=== PATIENT | male | born 1945 | race Caucasian/White ===

== ENCOUNTER → 2016-11-07 | Outpatient (CLI) | payer OTHER ==
[~2016-11-07] MED LIST: AZITHROMYCIN500 M1 PO; BACLOFEN10 MG PO; CYCLOBENZAPRINE10 MG PO; IBUPROFEN800 MG PO; LOPRESSOR100 M1 PO; MELOXICAM15 MG PO; MOBIC15 MG PO; PRAVASTATIN SOD40 MG PO; PROVENTIL HFA6.7 GM IH; VALIUM5 MG PO; VICODIN,LORT1 TABLET PO; ZESTRIL,PRINIVI20 MG PO
[2016-11-07 10:28] LABS: HEMATOCRIT 40.1 % (38.0-50.0); MCH 33.5 PG (29.0-34.0); MCHC 34.9 G/DL (30.0-36.0); MCV 95.9 FL (86-99); MEAN PLAT.VOLUME 10.2 uM^3 (9.0-12.4); PLATELET COUNT 331 K/uL (156-360); RBC DIS.WIDTH-CV 13.9 % (11.8-14.6); RBC DIS.WIDTH-SD 48.8 % (39-53); RED BLOOD COUNT 4.18 M/uL (4.00-5.50); WHITE BLOOD COUNT 11.1 K/uL (4.1-10.2)
[2016-11-07 10:46] LABS: PROTHROMBIN TIME 10.5 (9.2-11.2); PTT 26.4 (25-32)
== END | disposition home or self-care (01) ==
LOC: OPR 09:31 → EDSTATUS 10:00
PROVIDERS: Internal Medicine Hematology & Oncology
PROC: 0BJK3ZZ Inspection of Right Lung, Percutaneous Approach (ICD-10-PCS; principal; 2016-11-07)
DX: R91.8 Other nonspecific abnormal finding of lung field (principal); Z53.8 Procedure and treatment not carried out for other reasons
CPT/HCPCS: 71010; 77012; 85027; 85610; 85730; J3010

== ENCOUNTER → 2017-03-06 | Outpatient (CLI) | payer OTHER ==
[~2017-03-06] VITALS: Ht 177.8 cm; Wt 98.9 kg
[~2017-03-06] MED LIST changes: +GLUCOPHAGE500 MG PO; +GLUCOTROL5 MG PO; +OXYCONTIN10 MG PO; +PREDNISONE5 MG PO
[2017-03-06 13:45] LABS: HEMATOCRIT 42.9 % (38.0-50.0); MCHC 33.6 G/DL (30.0-36.0); MCV 98.2 FL (86-99); RBC DIS.WIDTH-CV 13.1 % (11.8-14.6); RBC DIS.WIDTH-SD 47.3 % (39-53); RED BLOOD COUNT 4.37 M/uL (4.00-5.50); WHITE BLOOD COUNT 11.7 K/uL (4.1-10.2)
[2017-03-06 13:56] LABS: POINT-OF-CARE METER ID UU13113694
[2017-03-06 13:57] LABS: PROTHROMBIN TIME 10.2 (9.2-11.2); PTT 27.5 (25-32)
[2017-03-06 14:18] LABS: MEAN PLAT.VOLUME 9.9 uM^3 (9.0-12.4); PLAT.SUFFICIENCY ADEQUATE; PLATELET COUNT 335 K/uL (156-360)
[2017-03-06 16:47] LABS: POINT-OF-CARE METER ID UU13113675; POINT-OF-CARE USER ID 515036437
== END | disposition home or self-care (01) ==
LOC: AMB 12:44
PROVIDERS: Internal Medicine Pulmonary Disease
DX: R91.8 Other nonspecific abnormal finding of lung field (principal); I10 Essential (primary) hypertension; E11.9 Type 2 diabetes mellitus without complications; J44.9 Chronic obstructive pulmonary disease, unspecified; E78.5 Hyperlipidemia, unspecified; F17.210 Nicotine dependence, cigarettes, uncomplicated; Z79.84 Long term (current) use of oral hypoglycemic drugs
CPT/HCPCS: 82948; 85027; 85610; 85730; 87070; 87077; 87116; 87205; 87206; 87278; 88108; 88173; J2250; J2310; J3010

== ENCOUNTER 2017-05-11 01:22 | Emergency (ER) | payer OTHER ==
[~2017-05-11] VITALS: Ht 177.8 cm; Wt 95.5 kg
[2017-05-11 05:28] VITALS: BP 164/96
== END 2017-05-11 05:00 | disposition home or self-care (01) ==
LOC: EME 01:22
DX: M54.41 Lumbago with sciatica, right side (principal); G89.29 Other chronic pain; I10 Essential (primary) hypertension; E11.9 Type 2 diabetes mellitus without complications; Z79.84 Long term (current) use of oral hypoglycemic drugs; Z88.0 Allergy status to penicillin; Z88.6 Allergy status to analgesic agent
CPT/HCPCS: 99281; 99283; J2270

== ENCOUNTER → 2017-08-10 | Outpatient (CLI) | payer OTHER ==
[~2017-08-10] VITALS: Ht 177.8 cm; Wt 91.6 kg
[~2017-08-10] MED LIST changes: +ALBUTEROL2.5 MG/3 M IH; +ANTIBOTIC PO; +KADIAN30 MG PO
[2017-08-10 14:44] LABS: POINT-OF-CARE METER ID UU14107333
[2017-08-10 15:03] LABS: ANION GAP 7 MEQ/L (2-14); CHLORIDE 102 MEQ/L (99-109); POTASSIUM 5.5 MEQ/L (3.7-5.4); SAMPLE HEMOLYSIS CHECK 2; SAMPLE ICTERIC CHECK 0; SAMPLE LIPEMIA CHECK 0; SODIUM 135 MEQ/L (136-147)
[2017-08-10 15:09] LABS: GFR ESTIMATE (CALCULATED) > 59 mL/min/; GLUCOSE 133 mg/dL (70-99); UREA NITROGEN (BUN) 16 mg/dL (9-23)
== END | disposition home or self-care (01) ==
LOC: AMB 14:14
PROVIDERS: Internal Medicine Pulmonary Disease
DX: C34.31 Malignant neoplasm of lower lobe, right bronchus or lung (principal); F17.200 Nicotine dependence, unspecified, uncomplicated; J44.9 Chronic obstructive pulmonary disease, unspecified; I10 Essential (primary) hypertension; E11.9 Type 2 diabetes mellitus without complications; Z79.84 Long term (current) use of oral hypoglycemic drugs; E78.5 Hyperlipidemia, unspecified; Z82.49 Family history of ischemic heart disease and other diseases of the circulatory system; Z80.8 Family history of malignant neoplasm of other organs or systems
CPT/HCPCS: 80048; 82948; 87070; 87116; 87205; 87206; 87278; 94640; J2250; J3010

== ENCOUNTER → 2017-09-11 | Outpatient (CLI) | payer OTHER | END | disposition home or self-care (01) | LOC: NUC 13:30 | DX: C34.90 Malignant neoplasm of unspecified part of unspecified bronchus or lung (principal) | CPT/HCPCS: 71020; 78598; A9540; A9567 ==

== ENCOUNTER → 2017-09-26 | Outpatient (CLI) | payer MEDICARE, OTHER ==
[~2017-09-26] MED LIST changes: +COL-RITE100 M1 PO; +HYDROCODON-ACE1 EAC7 PO
== END | disposition home or self-care (01) ==
LOC: CDC 11:58
DX: Z01.810 Encounter for preprocedural cardiovascular examination (principal); C34.90 Malignant neoplasm of unspecified part of unspecified bronchus or lung
CPT/HCPCS: 93000

== ENCOUNTER 2017-09-29 05:10 | Day surgery (SDC) | payer OTHER ==
[~2017-09-29] VITALS: Ht 177.8 cm; Wt 91.1 kg
[~2017-09-29 05:10] MED LIST changes: -COL-RITE100 M1 PO; -HYDROCODON-ACE1 EAC7 PO
[2017-09-29 06:00] VITALS: BP 110/63
[2017-09-29 06:09] LABS: BASOPHIL (%) 0.4 % (0-1); EOSINOPHIL (%) 1.4 % (0-5); EOSINOPHIL COUNT 0.1 K/uL (0-0.3); HEMATOCRIT 39.6 % (38.0-50.0); HEMOGLOBIN 13.3 G/DL (12.5-16.6); IMMATURE GRANULOCYTE (%) 0.3 % (0.0-0.7); LYMPHOCYTE COUNT 4.6 K/uL (1.0-2.8); MCHC 33.6 G/DL (30.0-36.0); MCV 95.2 FL (86-99); MONOCYTE (%) 8.1 % (3-12); MONOCYTE COUNT 0.8 K/uL (0-0.8); NEUTROPHIL (%) 44.8 % (45-76); NEUTROPHIL COUNT 4.6 K/uL (1.8-6.4); PLATELET COUNT 365 K/uL (156-360); RBC DIS.WIDTH-CV 14.3 % (11.8-14.6); RBC DIS.WIDTH-SD 49.8 % (39-53); RED BLOOD COUNT 4.16 M/uL (4.00-5.50); WHITE BLOOD COUNT 10.3 K/uL (4.1-10.2)
[2017-09-29 06:17] LABS: PTT 29.6 SEC (25-37)
[2017-09-29] MEDS ORDERED: HYDROCODON-ACE1 EAC7 PO (09:53)
[2017-09-29] MEDS ORDERED: COL-RITE100 M1 PO (09:53)
[2017-09-29 11:24] VITALS: BP 114/58
[2017-09-29 12:17] VITALS: BP 118/69
== END 2017-09-29 12:18 | disposition home or self-care (01) ==
LOC: SDC 05:10
PROVIDERS: Thoracic Surgery (Cardiothoracic Vascular Surgery)
DX: C34.90 Malignant neoplasm of unspecified part of unspecified bronchus or lung (principal); E11.9 Type 2 diabetes mellitus without complications; I10 Essential (primary) hypertension; E78.00 Pure hypercholesterolemia, unspecified; J44.9 Chronic obstructive pulmonary disease, unspecified; K21.9 Gastro-esophageal reflux disease without esophagitis; F17.210 Nicotine dependence, cigarettes, uncomplicated
CPT/HCPCS: 82948; 85025; 85610; 85730; 86850; 86900; 86901; 88305; 88312; 94640; J0330; J0690; J1100; J1170; J2250; J2405; J3010

== ENCOUNTER 2017-10-18 22:02 | Inpatient (IN) | payer OTHER ==
[~2017-10-18] VITALS: Ht 177.8 cm; Wt 86.7 kg
[~2017-10-18 22:02] MED LIST changes: +COL-RITE100 M1 PO; +COLACE100 MG PO; +HYDROCODON-ACE1 EAC7 PO
[2017-10-19 07:03] VITALS: BP 123/73
[2017-10-19 07:08] LABS: CHLORIDE 104 mEq/L (99-109); POTASSIUM 4.8 mEq/L (3.7-5.4); SODIUM 140 mEq/L (136-147)
[2017-10-19 07:09] LABS: PTT 29.3 SEC (25-37)
[2017-10-19 07:10] LABS: GLUCOSE 157 mg/dL (70-99)
[2017-10-19 07:14] LABS: CREATININE 0.7 mg/dL (0.6-1.3); GFR ESTIMATE (CALCULATED) > 59 mL/min/ (58.99-99999)
[2017-10-19 07:15] LABS: UREA NITROGEN (BUN) 12 mg/dL (9-23)
[2017-10-19 16:05] LABS: HEMATOCRIT 34.4 % (38.0-50.0); HEMOGLOBIN 11.7 G/DL (12.5-16.6); MCV 93.2 FL (86-99)
[2017-10-19 19:00] VITALS: BP 107/89
[2017-10-19 20:00] VITALS: BP 117/61
[2017-10-19 21:00] VITALS: BP 112/51
[2017-10-19 22:00] VITALS: BP 111/98
[2017-10-20 07:19] LABS: HEMATOCRIT 29.3 % (38.0-50.0); MCH 31.7 PG (29.0-34.0); MCHC 34.1 G/DL (30.0-36.0); PLATELET COUNT 296 K/uL (156-360); RBC DIS.WIDTH-CV 14.6 % (11.8-14.6); WHITE BLOOD COUNT 16.6 K/uL (4.1-10.2)
[2017-10-20 07:27] LABS: RED BLOOD COUNT 3.15 M/uL (4.00-5.50)
[2017-10-20 07:40] LABS: CHLORIDE 106 MEQ/L (99-109); CREATININE 0.5 MG/DL (0.6-1.3); GFR ESTIMATE (CALCULATED) > 59 mL/min/ (58.99-99999); GLUCOSE 147 mg/dL (70-99); SODIUM 135 MEQ/L (136-147); UREA NITROGEN (BUN) 14 mg/dL (9-23)
[2017-10-20 08:00] VITALS: BP 129/63
[2017-10-20 09:00] VITALS: BP 129/63
[2017-10-20 20:00] VITALS: BP 121/63
[2017-10-20 21:00] VITALS: BP 138/65
[2017-10-20 23:00] VITALS: BP 141/65
[2017-10-21] VITALS (14 sets, daily range): BP systolic 101–137; BP diastolic 48–71
[2017-10-21 05:24] LABS: HEMATOCRIT 27.5 % (38.0-50.0); MCH 30.7 PG (29.0-34.0); MCHC 32.7 G/DL (30.0-36.0); MCV 93.9 FL (86-99); PLATELET COUNT 287 K/uL (156-360); RBC DIS.WIDTH-CV 14.4 % (11.8-14.6); RBC DIS.WIDTH-SD 49.9 % (39-53); RED BLOOD COUNT 2.93 M/uL (4.00-5.50); WHITE BLOOD COUNT 12.7 K/uL (4.1-10.2)
[2017-10-21 06:04] LABS: CHLORIDE 106 MEQ/L (99-109); CREATININE 0.6 MG/DL (0.6-1.3); GFR ESTIMATE (CALCULATED) > 59 mL/min/ (58.99-99999); POTASSIUM 4.5 MEQ/L (3.7-5.4); SODIUM 140 MEQ/L (136-147); UREA NITROGEN (BUN) 14 mg/dL (9-23)
[2017-10-21 06:05] LABS: GLUCOSE 106 mg/dL (70-99)
[2017-10-22] VITALS (11 sets, daily range): BP systolic 99–138; BP diastolic 54–68
[2017-10-22 07:04] LABS: BASOPHIL (%) 0.3 % (0-1); EOSINOPHIL (%) 1.7 % (0-5); EOSINOPHIL COUNT 0.2 K/uL (0-0.3); HEMATOCRIT 27.1 % (38.0-50.0); HEMOGLOBIN 8.9 G/DL (12.5-16.6); IMMATURE GRANULOCYTE (%) 0.5 % (0.0-0.7); LYMPHOCYTE (%) 17.5 % (15-42); LYMPHOCYTE COUNT 2.2 K/uL (1.0-2.8); MCH 31.2 PG (29.0-34.0); MCHC 32.8 G/DL (30.0-36.0); MCV 95.1 FL (86-99); MONOCYTE (%) 9.6 % (3-12); MONOCYTE COUNT 1.2 K/uL (0-0.8); NEUTROPHIL (%) 70.4 % (45-76); NEUTROPHIL COUNT 8.9 K/uL (1.8-6.4); PLATELET COUNT 317 K/uL (156-360); RBC DIS.WIDTH-CV 14.3 % (11.8-14.6); RBC DIS.WIDTH-SD 50.5 % (39-53); RED BLOOD COUNT 2.85 M/uL (4.00-5.50); WHITE BLOOD COUNT 12.7 K/uL (4.1-10.2)
[2017-10-22 07:34] LABS: CHLORIDE 104 MEQ/L (99-109); CREATININE 0.5 MG/DL (0.6-1.3); GFR ESTIMATE (CALCULATED) > 59 mL/min/ (58.99-99999); GLUCOSE 134 mg/dL (70-99); MAGNESIUM 1.5 mg/dl (1.3-2.7); PHOSPHORUS 3.6 mg/dL (2.5-4.9); POTASSIUM 4.4 MEQ/L (3.7-5.4); SODIUM 136 MEQ/L (136-147); UREA NITROGEN (BUN) 9 mg/dL (9-23)
[2017-10-23] VITALS (12 sets, daily range): BP systolic 101–123; BP diastolic 39–91
[2017-10-23 05:00] LABS: HEMOGLOBIN 9.2 G/DL (12.5-16.6); MCH 32.5 PG (29.0-34.0); MCHC 34.1 G/DL (30.0-36.0); MCV 95.4 FL (86-99); RBC DIS.WIDTH-CV 14.2 % (11.8-14.6); RBC DIS.WIDTH-SD 50.2 % (39-53); RED BLOOD COUNT 2.83 M/uL (4.00-5.50); WHITE BLOOD COUNT 10.9 K/uL (4.1-10.2)
[2017-10-23 05:35] LABS: HEMATOLOGY COMMENT 1 SN; PLAT.SUFFICIENCY ADEQUATE; PLATELET COUNT UNABLE TO REPORT K/uL (156-360)
[2017-10-23 06:03] LABS: CHLORIDE 105 MEQ/L (99-109); CREATININE 0.5 MG/DL (0.6-1.3); GFR ESTIMATE (CALCULATED) > 59 mL/min/ (58.99-99999); GLUCOSE 126 mg/dL (70-99); POTASSIUM 4.5 MEQ/L (3.7-5.4); SODIUM 139 MEQ/L (136-147); UREA NITROGEN (BUN) 11 mg/dL (9-23)
[2017-10-24] VITALS (14 sets, daily range): BP systolic 103–140; BP diastolic 48–81
[2017-10-24 07:06] LABS: HEMATOCRIT 28.4 % (38.0-50.0); HEMOGLOBIN 9.4 G/DL (12.5-16.6); MCH 31.4 PG (29.0-34.0); MCHC 33.1 G/DL (30.0-36.0); PLATELET COUNT 373 K/uL (156-360); RBC DIS.WIDTH-SD 48.5 % (39-53); RED BLOOD COUNT 2.99 M/uL (4.00-5.50); WHITE BLOOD COUNT 9.1 K/uL (4.1-10.2)
[2017-10-24 07:29] LABS: CHLORIDE 104 MEQ/L (99-109); POTASSIUM 4.4 MEQ/L (3.7-5.4); SODIUM 138 MEQ/L (136-147)
[2017-10-24 07:34] LABS: CREATININE 0.5 MG/DL (0.6-1.3); GFR ESTIMATE (CALCULATED) > 59 mL/min/ (58.99-99999); GLUCOSE 101 mg/dL (70-99); UREA NITROGEN (BUN) 12 mg/dL (9-23)
[2017-10-25] VITALS (18 sets, daily range): BP systolic 96–152; BP diastolic 51–88
[2017-10-25 06:23] LABS: HEMATOCRIT 28.1 % (38.0-50.0); HEMOGLOBIN 9.2 G/DL (12.5-16.6); MCHC 32.7 G/DL (30.0-36.0); MCV 94.6 FL (86-99); PLATELET COUNT 416 K/uL (156-360); RBC DIS.WIDTH-CV 14.1 % (11.8-14.6); RBC DIS.WIDTH-SD 49.4 % (39-53); RED BLOOD COUNT 2.97 M/uL (4.00-5.50); WHITE BLOOD COUNT 8.6 K/uL (4.1-10.2)
[2017-10-25 07:08] LABS: CHLORIDE 103 MEQ/L (99-109); CREATININE 0.5 MG/DL (0.6-1.3); GFR ESTIMATE (CALCULATED) > 59 mL/min/ (58.99-99999); GLUCOSE 119 mg/dL (70-99); POTASSIUM 4.5 MEQ/L (3.7-5.4); SODIUM 138 MEQ/L (136-147); UREA NITROGEN (BUN) 11 mg/dL (9-23)
[2017-10-26] VITALS (14 sets, daily range): BP systolic 100–149; BP diastolic 47–88
[2017-10-26 06:18] LABS: HEMATOCRIT 30.7 % (38.0-50.0); HEMOGLOBIN 9.9 G/DL (12.5-16.6); MCH 31.2 PG (29.0-34.0); MCHC 32.2 G/DL (30.0-36.0); MCV 96.8 FL (86-99); RBC DIS.WIDTH-CV 14.1 % (11.8-14.6); RBC DIS.WIDTH-SD 49.4 % (39-53); RED BLOOD COUNT 3.17 M/uL (4.00-5.50); WHITE BLOOD COUNT 8.2 K/uL (4.1-10.2)
[2017-10-26 06:19] LABS: CHLORIDE 106 MEQ/L (99-109); POTASSIUM 4.6 MEQ/L (3.7-5.4); SODIUM 138 MEQ/L (136-147)
[2017-10-26 06:24] LABS: CREATININE 0.6 MG/DL (0.6-1.3); GFR ESTIMATE (CALCULATED) > 59 mL/min/ (58.99-99999); GLUCOSE 90 mg/dL (70-99); UREA NITROGEN (BUN) 13 mg/dL (9-23)
[2017-10-26 07:28] LABS: PLAT.SUFFICIENCY ADEQUATE
[2017-10-26 07:50] LABS: PLATELET COUNT 283 K/uL (156-360)
[2017-10-27] VITALS (17 sets, daily range): BP systolic 103–168; BP diastolic 49–76
[2017-10-27 05:18] LABS: HEMATOCRIT 30.5 % (38.0-50.0); MCHC 32.8 G/DL (30.0-36.0); MCV 94.4 FL (86-99); RBC DIS.WIDTH-CV 13.9 % (11.8-14.6); RBC DIS.WIDTH-SD 47.6 % (39-53); RED BLOOD COUNT 3.23 M/uL (4.00-5.50); WHITE BLOOD COUNT 11.3 K/uL (4.1-10.2)
[2017-10-27 05:21] LABS: PLATELET COUNT 511 K/uL (156-360)
[2017-10-27 05:44] LABS: CHLORIDE 100 MEQ/L (99-109); CREATININE 0.6 MG/DL (0.6-1.3); GFR ESTIMATE (CALCULATED) > 59 mL/min/ (58.99-99999); GLUCOSE 126 mg/dL (70-99); POTASSIUM 4.5 MEQ/L (3.7-5.4); SODIUM 140 MEQ/L (136-147); UREA NITROGEN (BUN) 10 mg/dL (9-23)
[2017-10-28] VITALS (23 sets, daily range): BP systolic 89–165; BP diastolic 46–111
[2017-10-28 07:21] LABS: HEMATOCRIT 28.9 % (38.0-50.0); HEMOGLOBIN 9.5 G/DL (12.5-16.6); MCH 31.4 PG (29.0-34.0); MCHC 32.9 G/DL (30.0-36.0); MCV 95.4 FL (86-99); PLATELET COUNT 423 K/uL (156-360); RBC DIS.WIDTH-CV 14.3 % (11.8-14.6); RBC DIS.WIDTH-SD 49.1 % (39-53); RED BLOOD COUNT 3.03 M/uL (4.00-5.50); WHITE BLOOD COUNT 9.3 K/uL (4.1-10.2)
[2017-10-28 07:46] LABS: CHLORIDE 106 MEQ/L (99-109); CREATININE 0.6 MG/DL (0.6-1.3); GFR ESTIMATE (CALCULATED) > 59 mL/min/ (58.99-99999); GLUCOSE 137 mg/dL (70-99); SODIUM 141 MEQ/L (136-147); UREA NITROGEN (BUN) 6 mg/dL (9-23)
[2017-10-29] VITALS (22 sets, daily range): BP systolic 66–145; BP diastolic 40–83
[2017-10-30] VITALS (20 sets, daily range): BP systolic 77–143; BP diastolic 40–75
[2017-10-31] VITALS (19 sets, daily range): BP systolic 0–118; BP diastolic 0–73
[2017-10-31 05:15] LABS: HEMATOCRIT 30.1 % (38.0-50.0); HEMOGLOBIN 9.8 G/DL (12.5-16.6); MCH 31.5 PG (29.0-34.0); MCHC 32.6 G/DL (30.0-36.0); MCV 96.8 FL (86-99); PLATELET COUNT 423 K/uL (156-360); RBC DIS.WIDTH-CV 14.2 % (11.8-14.6); RBC DIS.WIDTH-SD 50.6 % (39-53); RED BLOOD COUNT 3.11 M/uL (4.00-5.50); WHITE BLOOD COUNT 16.5 K/uL (4.1-10.2)
[2017-10-31 05:44] LABS: CHLORIDE 99 MEQ/L (99-109); CREATININE 0.7 MG/DL (0.6-1.3); GFR ESTIMATE (CALCULATED) > 59 mL/min/ (58.99-99999); GLUCOSE 145 mg/dL (70-99); POTASSIUM 4.7 MEQ/L (3.7-5.4); SODIUM 136 MEQ/L (136-147); UREA NITROGEN (BUN) 13 mg/dL (9-23)
[2017-11-01] VITALS (25 sets, daily range): BP systolic 76–126; BP diastolic 41–84
[2017-11-01 00:55] LABS: APPEARANCE CLEAR ((CLEAR)); BILIRUBIN NEGATIVE; BLOOD NEGATIVE; COLOR YELLOW ((YELLOW)); GLUCOSE (STRIP) NEGATIVE; KETONES NEGATIVE; LEUKOCYTES NEGATIVE; NITRITE NEGATIVE; PROTEIN (STRIP) NEGATIVE; SPECIFIC GRAVITY 1.011 (1.000-1.030); UCUL ADDED? NO; UROBILINOGEN 0.2 MG/DL (0.2-1.0)
[2017-11-01 06:03] LABS: HEMATOCRIT 29.2 % (38.0-50.0); HEMOGLOBIN 9.3 G/DL (12.5-16.6); MCH 30.6 PG (29.0-34.0); MCHC 31.8 G/DL (30.0-36.0); MCV 96.1 FL (86-99); PLATELET COUNT 426 K/uL (156-360); RBC DIS.WIDTH-SD 49.3 % (39-53); RED BLOOD COUNT 3.04 M/uL (4.00-5.50); WHITE BLOOD COUNT 16.1 K/uL (4.1-10.2)
[2017-11-01 06:28] LABS: CHLORIDE 100 MEQ/L (99-109); CREATININE 0.7 MG/DL (0.6-1.3); GFR ESTIMATE (CALCULATED) > 59 mL/min/ (58.99-99999); GLUCOSE 138 mg/dL (70-99); POTASSIUM 4.9 MEQ/L (3.7-5.4); SODIUM 137 MEQ/L (136-147); UREA NITROGEN (BUN) 11 mg/dL (9-23)
[2017-11-02] VITALS (26 sets, daily range): BP systolic 84–154; BP diastolic 44–95
[2017-11-02 04:58] LABS: HEMATOCRIT 27.4 % (38.0-50.0); HEMOGLOBIN 9.2 G/DL (12.5-16.6); MCH 31.6 PG (29.0-34.0); MCHC 33.6 G/DL (30.0-36.0); MCV 94.2 FL (86-99); PLATELET COUNT 420 K/uL (156-360); RBC DIS.WIDTH-CV 13.8 % (11.8-14.6); RBC DIS.WIDTH-SD 47.5 % (39-53); RED BLOOD COUNT 2.91 M/uL (4.00-5.50)
[2017-11-02 05:17] LABS: CHLORIDE 99 mEq/L (99-109); POTASSIUM 4.9 mEq/L (3.7-5.4); SODIUM 133 mEq/L (136-147)
[2017-11-02 05:19] LABS: GLUCOSE 158 mg/dL (70-99)
[2017-11-02 05:23] LABS: CREATININE 0.7 mg/dL (0.6-1.3); GFR ESTIMATE (CALCULATED) > 59 mL/min/ (58.99-99999); UREA NITROGEN (BUN) 16 mg/dL (9-23)
[2017-11-03] VITALS (16 sets, daily range): BP systolic 0–140; BP diastolic 0–83
[2017-11-03 04:37] LABS: HEMATOCRIT 30.2 % (38.0-50.0); HEMOGLOBIN 10.1 G/DL (12.5-16.6); MCH 31.8 PG (29.0-34.0); MCHC 33.4 G/DL (30.0-36.0); PLATELET COUNT 492 K/uL (156-360); RBC DIS.WIDTH-CV 13.9 % (11.8-14.6); RBC DIS.WIDTH-SD 48.9 % (39-53); RED BLOOD COUNT 3.18 M/uL (4.00-5.50)
[2017-11-04] VITALS (19 sets, daily range): BP systolic 80–136; BP diastolic 43–96
[2017-11-04 08:53] LABS: HEMATOCRIT 26.4 % (38.0-50.0); HEMOGLOBIN 8.7 G/DL (12.5-16.6); PLATELET COUNT 437 K/uL (156-360); RED BLOOD COUNT 2.81 M/uL (4.00-5.50); WHITE BLOOD COUNT 6.2 K/uL (4.1-10.2)
[2017-11-04 09:24] LABS: CHLORIDE 98 MEQ/L (99-109); CREATININE 0.5 MG/DL (0.6-1.3); GFR ESTIMATE (CALCULATED) > 59 mL/min/ (58.99-99999); GLUCOSE 128 mg/dL (70-99); POTASSIUM 4.6 MEQ/L (3.7-5.4); SODIUM 135 MEQ/L (136-147); UREA NITROGEN (BUN) 14 mg/dL (9-23)
[2017-11-05] VITALS (17 sets, daily range): BP systolic 76–127; BP diastolic 41–63
[2017-11-05 09:07] LABS: HEMATOCRIT 26.6 % (38.0-50.0); HEMOGLOBIN 8.6 G/DL (12.5-16.6); MCH 30.8 PG (29.0-34.0); MCHC 32.3 G/DL (30.0-36.0); MCV 95.3 FL (86-99); PLATELET COUNT 463 K/uL (156-360); RBC DIS.WIDTH-CV 13.9 % (11.8-14.6); RBC DIS.WIDTH-SD 48.5 % (39-53); RED BLOOD COUNT 2.79 M/uL (4.00-5.50); WHITE BLOOD COUNT 8.1 K/uL (4.1-10.2)
[2017-11-05 09:30] LABS: CHLORIDE 98 MEQ/L (99-109); CREATININE 0.5 MG/DL (0.6-1.3); GFR ESTIMATE (CALCULATED) > 59 mL/min/ (58.99-99999); GLUCOSE 131 mg/dL (70-99); POTASSIUM 4.6 MEQ/L (3.7-5.4); SODIUM 137 MEQ/L (136-147); UREA NITROGEN (BUN) 10 mg/dL (9-23)
[2017-11-06 03:00] VITALS: BP 94/53
[2017-11-06 12:00] VITALS: BP 113/53
[2017-11-06 16:00] VITALS: BP 96/47
[2017-11-06 20:00] VITALS: BP 103/57
[2017-11-07] VITALS (7 sets, daily range): BP systolic 106–135; BP diastolic 51–66
[2017-11-08] VITALS (7 sets, daily range): BP systolic 103–136; BP diastolic 54–80
[2017-11-08 06:57] LABS: HEMATOCRIT 30.4 % (38.0-50.0); HEMOGLOBIN 9.8 G/DL (12.5-16.6); MCH 30.4 PG (29.0-34.0); MCHC 32.2 G/DL (30.0-36.0); MCV 94.4 FL (86-99); PLATELET COUNT 591 K/uL (156-360); RBC DIS.WIDTH-SD 48.7 % (39-53); RED BLOOD COUNT 3.22 M/uL (4.00-5.50); WHITE BLOOD COUNT 11.6 K/uL (4.1-10.2)
[2017-11-08 07:21] LABS: CHLORIDE 97 MEQ/L (99-109); CREATININE 0.6 MG/DL (0.6-1.3); GFR ESTIMATE (CALCULATED) > 59 mL/min/ (58.99-99999); GLUCOSE 135 mg/dL (70-99); POTASSIUM 5.1 MEQ/L (3.7-5.4); SODIUM 136 MEQ/L (136-147); UREA NITROGEN (BUN) 16 mg/dL (9-23)
[2017-11-09 03:40] VITALS: BP 122/59
[2017-11-09 07:40] VITALS: BP 136/60
[2017-11-09 11:30] VITALS: BP 130/58
[2017-11-09 16:03] VITALS: BP 122/61
[2017-11-09 19:09] VITALS: BP 117/57
[2017-11-09 23:31] VITALS: BP 116/55
[2017-11-10 03:23] VITALS: BP 113/57
[2017-11-10 06:59] VITALS: BP 134/60
[2017-11-10 10:49] VITALS: BP 118/56
[2017-11-10 15:15] VITALS: BP 112/57
[2017-11-10 19:13] VITALS: BP 130/67
[2017-11-10 22:56] VITALS: BP 112/77
[2017-11-11 03:45] VITALS: BP 125/59
[2017-11-11 06:54] VITALS: BP 121/58
[2017-11-11 10:12] VITALS: BP 126/62
[2017-11-11 11:31] VITALS: BP 117/56
[2017-11-11 19:30] VITALS: BP 116/59
[2017-11-11 23:05] VITALS: BP 112/58
[2017-11-12 06:37] VITALS: BP 132/60
[2017-11-12 06:53] LABS: HEMATOCRIT 29.2 % (38.0-50.0); HEMOGLOBIN 9.4 G/DL (12.5-16.6); MCH 30.5 PG (29.0-34.0); MCHC 32.2 G/DL (30.0-36.0); MCV 94.8 FL (86-99); PLATELET COUNT 516 K/uL (156-360); RBC DIS.WIDTH-CV 14.2 % (11.8-14.6); RBC DIS.WIDTH-SD 48.3 % (39-53); RED BLOOD COUNT 3.08 M/uL (4.00-5.50); WHITE BLOOD COUNT 10.8 K/uL (4.1-10.2)
[2017-11-12 07:24] LABS: CHLORIDE 97 MEQ/L (99-109); CREATININE 0.5 MG/DL (0.6-1.3); GFR ESTIMATE (CALCULATED) > 59 mL/min/ (58.99-99999); GLUCOSE 126 mg/dL (70-99); POTASSIUM 4.9 MEQ/L (3.7-5.4); SODIUM 137 MEQ/L (136-147); UREA NITROGEN (BUN) 11 mg/dL (9-23)
[2017-11-12 16:03] VITALS: BP 115/58
[2017-11-12 21:10] VITALS: BP 125/59
[2017-11-12 23:32] VITALS: BP 114/60
[2017-11-13 07:46] VITALS: BP 149/66
[2017-11-13 11:36] VITALS: BP 100/56
[2017-11-13 16:31] VITALS: BP 116/55
[2017-11-13 19:43] VITALS: BP 128/66
[2017-11-13 23:11] VITALS: BP 124/54
[2017-11-14 03:32] VITALS: BP 127/61
[2017-11-14 07:38] VITALS: BP 115/56
[2017-11-14 15:55] VITALS: BP 121/60
[2017-11-14 20:08] VITALS: BP 106/56
[2017-11-14 22:47] VITALS: BP 123/60
[2017-11-15 00:21] VITALS: BP 112/56
[2017-11-15 04:15] VITALS: BP 106/55
[2017-11-15 08:00] VITALS: BP 115/56
[2017-11-15] MEDS ORDERED: DIGOXIN125 MCG PO (09:37)
[2017-11-15] MEDS ORDERED: LOPRESSOR50 MG PO (09:37)
[2017-11-15] MEDS ORDERED: ENDOCET 5-3251 EACH PO (09:37)
[2017-11-15] MEDS ORDERED: THERAGRAN1 TABLET PO (09:37)
[2017-11-15] MEDS ORDERED: MIRTAZAPINE7.5 MG PO (09:37)
[2017-11-15] MEDS ORDERED: MULTAQ400 MG PO (09:37)
[2017-11-15] MEDS ORDERED: BUSPAR15 MG PO (09:37)
[2017-11-15] MEDS ORDERED: FLORASTOR250 MG PO (09:37)
[2017-11-15 15:30] VITALS: BP 102/68
== END 2017-11-15 17:15 | disposition home or self-care (01) | DRG 164 ==
LOC: ENRESERV 22:02 → 5EAST 10-19 06:21 → 4WEST 10-19 06:21 → 2SOUTH 10-19 06:21 → ENRESERV 10-19 10:28 → 2SOUTH 10-19 11:24 → ENRESERV 10-19 13:24 → 2SOUTH 10-19 16:45 → 4WEST 10-19 18:07 → ENRESERV 11-07 08:13 → 5EAST 11-07 15:40 → ENPENDDIS 11-15 → 5EAST 11-15 17:15
PROVIDERS: Anesthesiology; Surgery; Thoracic Surgery (Cardiothoracic Vascular Surgery)
PROC: 0BTF0ZZ Resection of Right Lower Lung Lobe, Open Approach (ICD-10-PCS; principal; 2017-10-19)
PROC: 0BJ00ZZ Inspection of Tracheobronchial Tree, Open Approach (ICD-10-PCS; principal; 2017-10-19)
PROC: 0BQ10ZZ Repair Trachea, Open Approach (ICD-10-PCS; principal; 2017-10-19)
PROC: 0BTD0ZZ Resection of Right Middle Lung Lobe, Open Approach (ICD-10-PCS; principal; 2017-10-19)
PROC: 02QQ0ZZ Repair Right Pulmonary Artery, Open Approach (ICD-10-PCS; principal; 2017-10-19)
PROC: 0WJ80ZZ Inspection of Chest Wall, Open Approach (ICD-10-PCS; principal; 2017-10-19)
PROC: 0J960ZZ Drainage of Chest Subcutaneous Tissue and Fascia, Open Approach (ICD-10-PCS; principal; 2017-10-19)
DX: C34.31 Malignant neoplasm of lower lobe, right bronchus or lung (principal); T81.4XXA Infection following a procedure, initial encounter; D62 Acute posthemorrhagic anemia; J95.71 Accidental puncture and laceration of a respiratory system organ or structure during a respiratory system procedure; I97.51 Accidental puncture and laceration of a circulatory system organ or structure during a circulatory system procedure; T81.82XA Emphysema (subcutaneous) resulting from a procedure, initial encounter; E78.00 Pure hypercholesterolemia, unspecified; E78.5 Hyperlipidemia, unspecified; E11.9 Type 2 diabetes mellitus without complications; F43.23 Adjustment disorder with mixed anxiety and depressed mood; I10 Essential (primary) hypertension; I48.0 Paroxysmal atrial fibrillation; J44.9 Chronic obstructive pulmonary disease, unspecified; R63.0 Anorexia; J98.09 Other diseases of bronchus, not elsewhere classified; G47.00 Insomnia, unspecified; M12.9 Arthropathy, unspecified; J98.4 Other disorders of lung; E66.9 Obesity, unspecified; Z68.28 Body mass index [BMI] 28.0-28.9, adult; Z79.84 Long term (current) use of oral hypoglycemic drugs; Z79.51 Long term (current) use of inhaled steroids; Z87.891 Personal history of nicotine dependence; Z80.0 Family history of malignant neoplasm of digestive organs; Z80.1 Family history of malignant neoplasm of trachea, bronchus and lung; Z82.49 Family history of ischemic heart disease and other diseases of the circulatory system
CPT/HCPCS: 71045; 71046; 74230; 80048; 80048 91; 80162; 81003; 82948; 83735; 84100; 85014; 85018; 85025; 85027; 85610; 85730; 86850; 86900; 86901; 86920; 87040; 87070; 87075; 87076; 87185; 87205; 87641; 88300; 88305; 88309; 88331; 92526 GN; 92610 GN; 92611 GN; 93005; 94640; 94640 76; 94760; 94799; 97530 GO; 97530 GP; 99202; C1753; J0131; J0330; J0690; J1100; J1160; J1170; J1200; J1644; J1815; J1885; J1940; J2060; J2250; J2405; J2710; J3010; J3420; J7050; J7120; J7512; P9016; P9045; Q0167; S0020

== ENCOUNTER 2017-11-18 18:14 | Inpatient (IN) | payer OTHER ==
[~2017-11-18] VITALS: Ht 208.3 cm; Wt 81.7 kg
[~2017-11-18 18:14] MED LIST changes: +BUSPAR15 MG PO; +DIGOXIN125 MCG PO; +ENDOCET 5-3251 EACH PO; +FLORASTOR250 MG PO; +LOPRESSOR50 MG PO; +MIRTAZAPINE7.5 MG PO; +MULTAQ400 MG PO; +THERAGRAN1 TABLET PO
[2017-11-18 20:09] LABS: HEMATOCRIT 37.1 % (38.0-50.0); MCH 30.7 PG (29.0-34.0); MCHC 33.2 G/DL (30.0-36.0); MCV 92.5 FL (86-99); RBC DIS.WIDTH-SD 47.7 % (39-53); WHITE BLOOD COUNT 19.8 K/uL (4.1-10.2)
[2017-11-18 20:13] LABS: CARBON DIOXIDE (BICARBONATE) 30.4 MEQ/L (20-31)
[2017-11-18 20:17] LABS: CHLORIDE 97 mEq/L (99-109); POTASSIUM 5.4 mEq/L (3.7-5.4); SODIUM 136 mEq/L (136-147)
[2017-11-18 20:18] LABS: GLUCOSE 186 mg/dL (70-99)
[2017-11-18 20:22] LABS: CREATININE 0.8 mg/dL (0.6-1.3); GFR ESTIMATE (CALCULATED) > 59 mL/min/ (58.99-99999)
[2017-11-18 20:23] LABS: UREA NITROGEN (BUN) 16 mg/dL (9-23)
[2017-11-18 20:44] LABS: BASOPHIL (%) 0.4 % (0-1); BASOPHIL COUNT 0.1 K/uL (0-0.1); EOSINOPHIL (%) 0 % (0-5); IMMATURE GRANULOCYTE (%) 1.2 % (0.0-0.7); LYMPHOCYTE (%) 9.2 % (15-42); LYMPHOCYTE COUNT 1.8 K/uL (1.0-2.8); NEUTROPHIL (%) 79.2 % (45-76); NEUTROPHIL COUNT 15.7 K/uL (1.8-6.4); PLATELET CLUMPS PRESENT - PLATELET COUNT APPEARS INCREASED; POLYCHROMASIA 2+
[2017-11-18 20:53] LABS: HEMOGLOBIN 12.3 G/DL (12.5-16.6); RED BLOOD COUNT 4.01 M/uL (4.00-5.50)
[2017-11-19 07:36] LABS: HEMATOCRIT 30.3 % (38.0-50.0); MCH 30.3 PG (29.0-34.0); MCV 91.8 FL (86-99); PLATELET COUNT 542 K/uL (156-360); RBC DIS.WIDTH-CV 14.1 % (11.8-14.6); RBC DIS.WIDTH-SD 47.8 % (39-53); WHITE BLOOD COUNT 12.2 K/uL (4.1-10.2)
[2017-11-19 08:10] LABS: CHLORIDE 98 MEQ/L (99-109); CREATININE 0.6 MG/DL (0.6-1.3); GFR ESTIMATE (CALCULATED) > 59 mL/min/ (58.99-99999); GLUCOSE 136 mg/dL (70-99); POTASSIUM 4.5 MEQ/L (3.7-5.4); SODIUM 134 MEQ/L (136-147); UREA NITROGEN (BUN) 15 mg/dL (9-23)
[2017-11-19] MEDS ORDERED: PRAVACHOL40 MG PO (11:32)
[2017-11-19] MEDS ORDERED: PROVENTIL HFA6.7 GM IH (11:33)
[2017-11-19] MEDS ORDERED: IBUPROFEN800 MG PO (11:33)
[2017-11-19] MEDS ORDERED: METFORMIN HCL500 MG PO (11:34)
[2017-11-19] MEDS ORDERED: GLIPIZIDE10 MG PO (11:34)
[2017-11-19] MEDS ORDERED: ALBUTEROL2.5 MG/3 M IH (11:35)
[2017-11-19] MEDS ORDERED: DIGOXIN125 MCG PO (11:36)
[2017-11-19] MEDS ORDERED: MULTAQ400 MG PO (11:36)
[2017-11-19] MEDS ORDERED: LOPRESSOR50 MG PO (11:37)
[2017-11-19] MEDS ORDERED: MIRTAZAPINE7.5 MG PO (11:38)
[2017-11-19] MEDS ORDERED: OXYCODONE-ACET1 EACH PO (11:38)
[2017-11-19] MEDS ORDERED: BUSPAR15 MG PO (11:39)
[2017-11-19] MEDS ORDERED: THERAGRAN1 TABLET PO (11:40)
[2017-11-19] MEDS ORDERED: FLORASTOR250 MG PO (11:40)
[2017-11-19] MEDS ORDERED: BACLOFEN20 MG PO (11:41)
[2017-11-19] MEDS ORDERED: LISINOPRIL20 MG PO (11:41)
[2017-11-19 14:28] VITALS: BP 121/65
[2017-11-19 19:05] VITALS: BP 119/65
[2017-11-20 01:15] VITALS: BP 124/65
[2017-11-20 05:00] VITALS: BP 127/65
[2017-11-20 09:13] VITALS: BP 129/65
[2017-11-20 11:45] VITALS: BP 115/61
[2017-11-20 15:52] VITALS: BP 106/62
[2017-11-20 20:34] VITALS: BP 111/62
[2017-11-21] VITALS (7 sets, daily range): BP systolic 101–137; BP diastolic 55–67
[2017-11-22 03:32] VITALS: BP 115/57
[2017-11-22 05:07] LABS: HEMATOCRIT 30.3 % (38.0-50.0); HEMOGLOBIN 9.9 G/DL (12.5-16.6); MCH 30.7 PG (29.0-34.0); MCHC 32.7 G/DL (30.0-36.0); MCV 93.8 FL (86-99); PLATELET COUNT 532 K/uL (156-360); RBC DIS.WIDTH-CV 14.2 % (11.8-14.6); RBC DIS.WIDTH-SD 49.1 % (39-53); RED BLOOD COUNT 3.23 M/uL (4.00-5.50); WHITE BLOOD COUNT 7.1 K/uL (4.1-10.2)
[2017-11-22 05:15] LABS: CHLORIDE 104 mEq/L (99-109); POTASSIUM 4.8 mEq/L (3.7-5.4); SODIUM 139 mEq/L (136-147)
[2017-11-22 05:21] LABS: CREATININE 0.6 mg/dL (0.6-1.3); GFR ESTIMATE (CALCULATED) > 59 mL/min/ (58.99-99999)
[2017-11-22 05:22] LABS: UREA NITROGEN (BUN) 11 mg/dL (9-23)
[2017-11-22 05:23] LABS: GLUCOSE 82 mg/dL (70-99)
[2017-11-22 08:45] VITALS: BP 112/55
[2017-11-22 11:50] VITALS: BP 113/55
[2017-11-22 16:30] VITALS: BP 116/58
[2017-11-22 20:02] VITALS: BP 112/53
[2017-11-23] VITALS (7 sets, daily range): BP systolic 117–129; BP diastolic 57–65
[2017-11-24 04:40] VITALS: BP 113/59
[2017-11-24 09:21] VITALS: BP 122/61
[2017-11-24 11:48] VITALS: BP 130/67
[2017-11-24 16:25] VITALS: BP 120/62
[2017-11-24 20:08] VITALS: BP 110/55
[2017-11-24 23:36] VITALS: BP 107/52
[2017-11-25 03:04] VITALS: BP 124/86
[2017-11-25 05:49] LABS: HEMATOCRIT 29.4 % (38.0-50.0); HEMOGLOBIN 9.2 G/DL (12.5-16.6); MCH 29.6 PG (29.0-34.0); MCHC 31.3 G/DL (30.0-36.0); MCV 94.5 FL (86-99); PLATELET COUNT 478 K/uL (156-360); RBC DIS.WIDTH-CV 14.6 % (11.8-14.6); RBC DIS.WIDTH-SD 50.1 % (39-53); RED BLOOD COUNT 3.11 M/uL (4.00-5.50); WHITE BLOOD COUNT 8.5 K/uL (4.1-10.2)
[2017-11-25 06:11] LABS: CHLORIDE 105 MEQ/L (99-109); CREATININE 0.5 MG/DL (0.6-1.3); GFR ESTIMATE (CALCULATED) > 59 mL/min/ (58.99-99999); GLUCOSE 71 mg/dL (70-99); POTASSIUM 4.3 MEQ/L (3.7-5.4); SODIUM 139 MEQ/L (136-147); UREA NITROGEN (BUN) 6 mg/dL (9-23)
[2017-11-25 08:03] VITALS: BP 119/56
[2017-11-25 12:00] LABS: C DIFF TOXIN NEGATIVE (NEGATIVE)
[2017-11-25 12:10] VITALS: BP 119/60
[2017-11-25 16:01] VITALS: BP 128/61
[2017-11-25 20:00] VITALS: BP 127/58
[2017-11-25 23:55] VITALS: BP 108/58
[2017-11-26 07:27] VITALS: BP 126/67
[2017-11-26 11:12] VITALS: BP 120/71
[2017-11-26 14:56] VITALS: BP 138/63
[2017-11-26 19:30] VITALS: BP 118/66
[2017-11-26 22:30] VITALS: BP 124/61
[2017-11-27 03:30] VITALS: BP 130/66
[2017-11-27 07:06] VITALS: BP 130/66
[2017-11-27 11:46] VITALS: BP 120/63
[2017-11-27 15:43] VITALS: BP 125/67
[2017-11-27 19:00] VITALS: BP 137/77
[2017-11-27 23:00] VITALS: BP 114/56
[2017-11-28] VITALS (8 sets, daily range): BP systolic 98–131; BP diastolic 50–66
[2017-11-29 03:12] VITALS: BP 103/57
[2017-11-29 07:30] VITALS: BP 117/56
[2017-11-29 12:28] VITALS: BP 119/25
[2017-11-29 13:32] LABS: HEMATOCRIT 32.7 % (38.0-50.0); HEMOGLOBIN 10.3 G/DL (12.5-16.6); MCH 29.8 PG (29.0-34.0); MCHC 31.5 G/DL (30.0-36.0); MCV 94.5 FL (86-99); PLATELET COUNT 441 K/uL (156-360); RBC DIS.WIDTH-CV 15.5 % (11.8-14.6); RBC DIS.WIDTH-SD 52.5 % (39-53); RED BLOOD COUNT 3.46 M/uL (4.00-5.50); WHITE BLOOD COUNT 10.3 K/uL (4.1-10.2)
[2017-11-29 16:11] LABS: CHLORIDE 104 MEQ/L (99-109); CREATININE 0.6 MG/DL (0.6-1.3); GFR ESTIMATE (CALCULATED) > 59 mL/min/ (58.99-99999); GLUCOSE 76 mg/dL (70-99); POTASSIUM 4.1 MEQ/L (3.7-5.4); SODIUM 140 MEQ/L (136-147); UREA NITROGEN (BUN) 9 mg/dL (9-23)
[2017-11-29 16:39] VITALS: BP 116/58
[2017-11-29 19:19] VITALS: BP 112/59
[2017-11-29 20:45] VITALS: BP 100/55
[2017-11-30 00:13] VITALS: BP 99/56
[2017-11-30 03:23] VITALS: BP 113/59
[2017-11-30 07:42] VITALS: BP 106/56
[2017-11-30 18:00] VITALS: BP 129/63
[2017-11-30 19:53] VITALS: BP 125/68
[2017-11-30 23:55] VITALS: BP 118/64
[2017-12-01 03:49] VITALS: BP 128/68
[2017-12-01 05:49] LABS: HEMATOCRIT 31.1 % (38.0-50.0); HEMOGLOBIN 9.9 G/DL (12.5-16.6); MCH 30.3 PG (29.0-34.0); MCHC 31.8 G/DL (30.0-36.0); MCV 95.1 FL (86-99); PLATELET COUNT 415 K/uL (156-360); RBC DIS.WIDTH-CV 15.8 % (11.8-14.6); RBC DIS.WIDTH-SD 54.6 % (39-53); RED BLOOD COUNT 3.27 M/uL (4.00-5.50); WHITE BLOOD COUNT 16.3 K/uL (4.1-10.2)
[2017-12-01 06:11] LABS: CHLORIDE 104 MEQ/L (99-109); CREATININE 0.5 MG/DL (0.6-1.3); GFR ESTIMATE (CALCULATED) > 59 mL/min/ (58.99-99999); POTASSIUM 4.4 MEQ/L (3.7-5.4); SODIUM 141 MEQ/L (136-147); UREA NITROGEN (BUN) 8 mg/dL (9-23)
[2017-12-01 06:17] LABS: GLUCOSE 103 mg/dL (70-99)
[2017-12-01 07:29] VITALS: BP 111/60
[2017-12-01 11:44] VITALS: BP 122/61
[2017-12-01 21:20] VITALS: BP 123/58
[2017-12-01 23:14] VITALS: BP 110/68
[2017-12-02 03:27] VITALS: BP 119/56
[2017-12-02 07:12] VITALS: BP 118/68
[2017-12-02 12:08] VITALS: BP 105/54
[2017-12-02 15:41] VITALS: BP 124/57
[2017-12-02 19:49] VITALS: BP 126/81
[2017-12-02 22:17] VITALS: BP 114/57
[2017-12-03 03:11] VITALS: BP 121/61
[2017-12-03 07:27] VITALS: BP 102/58
[2017-12-03 11:06] VITALS: BP 101/61
[2017-12-03 15:10] VITALS: BP 96/51
[2017-12-03 19:57] VITALS: BP 125/58
[2017-12-03 22:56] VITALS: BP 96/52
[2017-12-04 02:30] VITALS: BP 109/56
[2017-12-04 07:07] VITALS: BP 104/74
[2017-12-04 07:20] VITALS: BP 116/57
[2017-12-04 11:21] VITALS: BP 110/55
[2017-12-04] MEDS ORDERED: DOCUSATE SODIU100 MG PO (14:13)
[2017-12-04] MEDS ORDERED: LOPRESSOR50 MG PO (14:13)
[2017-12-04] MEDS ORDERED: MOTRIN600 MG PO (14:13)
[2017-12-04 14:22] VITALS: BP 110/78
== END 2017-12-04 18:40 | disposition home or self-care (01) | DRG 167 ==
LOC: EME 18:14 → 4EAST 20:02 → EDOF 20:02 → ENRESERV 20:09 → 4EAST 11-19 13:53
PROVIDERS: Emergency Medicine; Thoracic Surgery (Cardiothoracic Vascular Surgery)
DX: J86.0 Pyothorax with fistula (principal); C34.90 Malignant neoplasm of unspecified part of unspecified bronchus or lung; T79.7XXA Traumatic subcutaneous emphysema, initial encounter; M19.90 Unspecified osteoarthritis, unspecified site; E11.9 Type 2 diabetes mellitus without complications; I10 Essential (primary) hypertension; E78.00 Pure hypercholesterolemia, unspecified; J44.9 Chronic obstructive pulmonary disease, unspecified; Z90.2 Acquired absence of lung [part of]; Z80.1 Family history of malignant neoplasm of trachea, bronchus and lung; Z82.49 Family history of ischemic heart disease and other diseases of the circulatory system; Z87.891 Personal history of nicotine dependence; T81.4XXA Infection following a procedure, initial encounter; B99.9 Unspecified infectious disease; Z68.1 Body mass index [BMI] 19.9 or less, adult; F43.23 Adjustment disorder with mixed anxiety and depressed mood; F17.200 Nicotine dependence, unspecified, uncomplicated; E78.5 Hyperlipidemia, unspecified; Z80.0 Family history of malignant neoplasm of digestive organs; Z85.118 Personal history of other malignant neoplasm of bronchus and lung
CPT/HCPCS: 71045; 80048; 82803; 82948; 85025; 85027; 87493; 88300; 88305; 93005; 94640; 94640 76; 94760; 94799; 97530 GO; 97530 GP; 99202; 99281; 99285; A6214; J0131; J0330; J0690; J1100; J1170; J1650; J1885; J2250; J2405; J2543; J2710; J3010; J7050; J7120

== ENCOUNTER 2018-01-10 16:00 | Inpatient (IN) | payer OTHER ==
[~2018-01-10] VITALS: Ht 177.8 cm; Wt 76.7 kg
[~2018-01-10 16:00] MED LIST changes: +DOCUSATE SODIU100 MG PO; +MOTRIN600 MG PO
[2018-01-10 16:51] LABS: HEMATOCRIT 26.9 % (38.0-50.0); HEMOGLOBIN 8.6 G/DL (12.5-16.6); MCH 30.1 PG (29.0-34.0); MCV 94.1 FL (86-99); PLATELET COUNT 525 K/uL (156-360); RBC DIS.WIDTH-CV 15.7 % (11.8-14.6); RBC DIS.WIDTH-SD 53.5 % (39-53); RED BLOOD COUNT 2.86 M/uL (4.00-5.50); WHITE BLOOD COUNT 11.9 K/uL (4.1-10.2)
[2018-01-10 16:55] LABS: CARBON DIOXIDE (BICARBONATE) 23.9 MEQ/L (20-31)
[2018-01-10 17:03] LABS: CHLORIDE 97 mEq/L (99-109); SODIUM 133 mEq/L (136-147)
[2018-01-10 17:05] LABS: GLUCOSE 182 mg/dL (70-99)
[2018-01-10 17:09] LABS: CREATININE 0.8 mg/dL (0.6-1.3); GFR ESTIMATE (CALCULATED) > 59 mL/min/ (58.99-99999); UREA NITROGEN (BUN) 19 mg/dL (9-23)
[2018-01-10 17:13] LABS: TROP-I INTERPRETATION NEGATIVE; TROPONIN-I < 0.01 ng/mL (0.0-0.30)
[2018-01-10 22:34] LABS: BASE EXCESS 3.9 mEq/L (-3 to +3); BICARBONATE 26.9 mEq/L (22-26); CARBOXY HGB 1.4 % (0-5); PCO2 33 mm Hg (35-45); PO2 163 mm Hg (80-100); pH 7.52 (7.35-7.45)
[2018-01-10 22:35] LABS: COMMENTS - BLOOD GASES C+A+; DEVICE NC; O2 FLOW 4 L/MIN; SITE LR
[2018-01-10] MEDS ORDERED: PRAVACHOL80 MG PO (23:33)
[2018-01-10] MEDS ORDERED: IBU600 MG PO (23:33)
[2018-01-10] MEDS ORDERED: COLACE100 MG PO (23:33)
[2018-01-10] MEDS ORDERED: LOPRESSOR50 MG PO (23:33)
[2018-01-10] MEDS ORDERED: ALBUTEROL2.5 MG/3 M IH (23:33)
[2018-01-10] MEDS ORDERED: METFORMIN HCL500 MG PO (23:33)
[2018-01-10] MEDS ORDERED: DIGOXIN125 MCG PO (23:33)
[2018-01-10] MEDS ORDERED: FLORASTOR250 MG PO (23:33)
[2018-01-10] MEDS ORDERED: GLIPIZIDE10 MG PO (23:33)
[2018-01-10] MEDS ORDERED: OXYCODONE-ACET1 EACH PO (23:33)
[2018-01-10] MEDS ORDERED: MIRTAZAPINE7.5 MG PO (23:33)
[2018-01-10] MEDS ORDERED: MULTAQ400 MG PO (23:33)
[2018-01-10] MEDS ORDERED: THERAGRAN1 TABLET PO (23:33)
[2018-01-10] MEDS ORDERED: BUSPAR15 MG PO (23:33)
[2018-01-10] MEDS ORDERED: PROVENTIL HFA6.7 GM IH (23:33)
[2018-01-10] MEDS ORDERED: BACLOFEN20 MG PO (23:34)
[2018-01-10] MEDS ORDERED: HYDROCODON-ACE1 EAC7 PO (23:34)
[2018-01-10] MEDS ORDERED: LISINOPRIL20 MG PO (23:34)
[2018-01-10 23:35] VITALS: BP 92/57
[2018-01-10 23:47] VITALS: BP 66/53
[2018-01-10 23:56] VITALS: BP 92/57
[2018-01-11] VITALS (35 sets, daily range): BP systolic 66–127; BP diastolic 52–81
[2018-01-11 05:01] LABS: HEMATOCRIT 26.2 % (38.0-50.0); HEMOGLOBIN 8.7 G/DL (12.5-16.6); MCH 30.2 PG (29.0-34.0); MCHC 33.2 G/DL (30.0-36.0); PLATELET COUNT 651 K/uL (156-360); RBC DIS.WIDTH-CV 15.8 % (11.8-14.6); RED BLOOD COUNT 2.88 M/uL (4.00-5.50); WHITE BLOOD COUNT 11.7 K/uL (4.1-10.2)
[2018-01-11 05:26] LABS: ALBUMIN 2.4 g/dL (3.2-4.8); CHLORIDE 104 mEq/L (99-109); SODIUM 136 mEq/L (136-147)
[2018-01-11 05:29] LABS: GLUCOSE 164 mg/dL (70-99); TOTAL PROTEIN 5.1 g/dL (6.4-8.3)
[2018-01-11 05:31] LABS: TOTAL BILIRUBIN 0.3 mg/dL (0.0-1.0)
[2018-01-11 05:32] LABS: ALKALINE PHOSPHATASE 76 IU/L (3-129); CREATININE 0.6 mg/dL (0.6-1.3); GFR ESTIMATE (CALCULATED) > 59 mL/min/ (58.99-99999)
[2018-01-11 05:33] LABS: UREA NITROGEN (BUN) 15 mg/dL (9-23)
[2018-01-11 05:34] LABS: AST (GOT) 18 IU/L (2-34)
[2018-01-11 05:35] LABS: ALT (GPT) 14 IU/L (3-49)
[2018-01-11 11:10] LABS: BASE EXCESS -1.4 mEq/L (-3 to +3); BICARBONATE 22.4 mEq/L (22-26); CARBOXY HGB 1.3 % (0-5); METHEMOGLOBIN 1.6 % (0-1.5); PCO2 33 mm Hg (35-45); pH 7.44 (7.35-7.45)
[2018-01-11 11:11] LABS: COMMENTS - BLOOD GASES A+C+; O2 FLOW 2 L/MIN; PO2 88 mm Hg (80-100); SITE RR; TOTAL RESP RATE 22 resp/min
[2018-01-11 19:11] LABS: APPEARANCE SL.HAZY ((CLEAR)); BILIRUBIN NEGATIVE; BLOOD MODERATE; COLOR YELLOW ((YELLOW)); GLUCOSE (STRIP) 50; KETONES NEGATIVE; LEUKOCYTES NEGATIVE; NITRITE NEGATIVE; PROTEIN (STRIP) NEGATIVE; UROBILINOGEN 0.2 MG/DL (0.2-1.0)
[2018-01-11 19:54] LABS: RED BLOOD CELLS 0-5 /HPF (0-5)
[2018-01-11 19:55] LABS: BACTERIA RARE /HPF; EPITHELIAL CELLS RARE /HPF; MUCUS 1+ /LPF; URIC ACID CRYSTALS RARE /HPF; WHITE BLOOD CELLS 0-5 /HPF (0-5)
[2018-01-12] VITALS (23 sets, daily range): BP systolic 90–122; BP diastolic 59–84
[2018-01-12 07:03] LABS: CREATININE 0.5 MG/DL (0.6-1.3); GFR ESTIMATE (CALCULATED) > 59 mL/min/ (58.99-99999); UREA NITROGEN (BUN) 12 mg/dL (9-23)
[2018-01-13] VITALS (21 sets, daily range): BP systolic 91–166; BP diastolic 63–157
[2018-01-13 02:44] LABS: BASE EXCESS -3.4 mEq/L (-3 to +3); BICARBONATE 19.9 mEq/L (22-26); CARBOXY HGB 2.2 % (0-5); METHEMOGLOBIN 1.2 % (0-1.5); PCO2 28 mm Hg (35-45); PO2 51 mm Hg (80-100); SITE RR; pH 7.46 (7.35-7.45)
[2018-01-13 02:45] LABS: COMMENTS - BLOOD GASES C+; DEVICE NC; O2 FLOW 3 L/MIN
[2018-01-13 07:04] LABS: TROP-I INTERPRETATION NEGATIVE; TROPONIN-I 0.01 ng/mL (0.0-0.30)
[2018-01-14] VITALS (26 sets, daily range): BP systolic 90–142; BP diastolic 55–98
[2018-01-14 07:07] LABS: ALBUMIN 2.5 G/DL (3.2-4.8); ALKALINE PHOSPHATASE 68 IU/L (3-129); ALT (GPT) 43 IU/L (3-49); AST (GOT) 57 IU/L (2-34); CHLORIDE 113 MEQ/L (99-109); CREATININE 0.7 MG/DL (0.6-1.3); GFR ESTIMATE (CALCULATED) > 59 mL/min/ (58.99-99999); GLUCOSE 125 mg/dL (70-99); POTASSIUM 4.6 MEQ/L (3.7-5.4); SODIUM 141 MEQ/L (136-147); TOTAL BILIRUBIN 0.4 MG/DL (0.0-1.0); TOTAL PROTEIN 5.3 G/DL (6.4-8.3)
[2018-01-14 07:09] LABS: UREA NITROGEN (BUN) 24 mg/dL (9-23)
[2018-01-14 07:32] LABS: BASE EXCESS -7.8 mEq/L (-3 to +3); CARBOXY HGB 1.8 % (0-5); METHEMOGLOBIN 1.6 % (0-1.5); PCO2 25 mm Hg (35-45); pH 7.41 (7.35-7.45)
[2018-01-14 07:33] LABS: BICARBONATE 15.8 mEq/L (22-26); COMMENTS - BLOOD GASES A+C+; DEVICE VENTURI; FI02 40 %; O2 FLOW 8 L/MIN; PO2 40 mm Hg (80-100); SITE RR; TOTAL RESP RATE 25 resp/min
[2018-01-14 11:19] LABS: BASE EXCESS -9.7 mEq/L (-3 to +3); BICARBONATE 14.9 mEq/L (22-26); CARBOXY HGB 1.4 % (0-5); METHEMOGLOBIN 1.5 % (0-1.5); PCO2 27 mm Hg (35-45); pH 7.35 (7.35-7.45)
[2018-01-14 11:21] LABS: COMMENTS - BLOOD GASES A+C+; DEVICE 840; FI02 100 %; MODE SPONT; PEEP 5 CM/H20; PO2 336 mm Hg (80-100); PRES. SUPPORT 10 CM/H2O; SITE LEFT BRAICHAL; TOTAL RESP RATE 16 resp/min
[2018-01-15] VITALS (24 sets, daily range): BP systolic 93–130; BP diastolic 58–83
[2018-01-15 05:18] LABS: HEMATOCRIT 25.5 % (38.0-50.0); MCH 30.2 PG (29.0-34.0); MCHC 31.4 G/DL (30.0-36.0); NRBC (%) 0.5 /100 WBC (0-0); RBC DIS.WIDTH-CV 17.2 % (11.8-14.6); RBC DIS.WIDTH-SD 59.8 % (39-53); RED BLOOD COUNT 2.65 M/uL (4.00-5.50); WHITE BLOOD COUNT 11.4 K/uL (4.1-10.2)
[2018-01-15 05:19] LABS: MCV 96.2 FL (86-99)
[2018-01-15 05:37] LABS: PLAT.SUFFICIENCY INCREASED; PLATELET COUNT 421 K/uL (156-360)
[2018-01-15 06:35] LABS: ALBUMIN 2.5 G/DL (3.2-4.8); ALKALINE PHOSPHATASE 60 IU/L (3-129); ALT (GPT) 38 IU/L (3-49); CHLORIDE 110 MEQ/L (99-109); CREATININE 0.8 MG/DL (0.6-1.3); GFR ESTIMATE (CALCULATED) > 59 mL/min/ (58.99-99999); GLUCOSE 178 mg/dL (70-99); POTASSIUM 4.1 MEQ/L (3.7-5.4); SODIUM 139 MEQ/L (136-147); TOTAL BILIRUBIN 0.4 MG/DL (0.0-1.0); TOTAL PROTEIN 4.9 G/DL (6.4-8.3); UREA NITROGEN (BUN) 26 mg/dL (9-23)
[2018-01-15 06:44] LABS: AST (GOT) 31 IU/L (2-34)
[2018-01-16] VITALS (24 sets, daily range): BP systolic 95–146; BP diastolic 61–99
[2018-01-16 13:42] LABS: CHLORIDE 118 MEQ/L (99-109); CREATININE 0.8 MG/DL (0.6-1.3); GFR ESTIMATE (CALCULATED) > 59 mL/min/ (58.99-99999); GLUCOSE 123 mg/dL (70-99); UREA NITROGEN (BUN) 21 mg/dL (9-23)
[2018-01-16 13:45] LABS: POTASSIUM 4.6 MEQ/L (3.7-5.4); SODIUM 150 MEQ/L (136-147)
[2018-01-17] VITALS (9 sets, daily range): BP systolic 88–132; BP diastolic 52–89
[2018-01-17 00:09] LABS: BASE EXCESS 3.2 mEq/L (-3 to +3); BICARBONATE 33.5 mEq/L (22-26); CARBOXY HGB 2.3 % (0-5); METHEMOGLOBIN 2.5 % (0-1.5); PCO2 94 mm Hg (35-45); PO2 95 mm Hg (80-100)
[2018-01-17 00:10] LABS: COMMENTS - BLOOD GASES C+A+; DEVICE VENT; FI02 50 %; MODE SPONT; PEEP 5 CM/H20; PRES. SUPPORT 10 CM/H2O; SITE RR; TOTAL RESP RATE 6 resp/min; pH 7.16 (7.35-7.45)
[2018-01-17 02:56] LABS: BASE EXCESS 4.1 mEq/L (-3 to +3); BICARBONATE 32.3 mEq/L (22-26); CARBOXY HGB 2.2 % (0-5); METHEMOGLOBIN 2.2 % (0-1.5); PO2 105 mm Hg (80-100)
[2018-01-17 02:57] LABS: COMMENTS - BLOOD GASES C+; DEVICE VENT; FI02 50 %; MECHANICAL RATE 20 resp/min; MODE AC; PCO2 72 mm Hg (35-45); PEEP 3 CM/H20; SITE A-LINE; TIDAL VOLUME 300 ML; TOTAL RESP RATE 20 resp/min; pH 7.26 (7.35-7.45)
[2018-01-17 05:50] LABS: HEMATOCRIT 25.9 % (38.0-50.0); HEMOGLOBIN 7.8 G/DL (12.5-16.6); MCH 30.2 PG (29.0-34.0); MCHC 30.1 G/DL (30.0-36.0); MCV 100.4 FL (86-99); NRBC (%) 0.9 /100 WBC (0-0); PLATELET COUNT 398 K/uL (156-360); RBC DIS.WIDTH-CV 18.9 % (11.8-14.6); RBC DIS.WIDTH-SD 65.8 % (39-53); RED BLOOD COUNT 2.58 M/uL (4.00-5.50); WHITE BLOOD COUNT 19.7 K/uL (4.1-10.2)
[2018-01-17 06:06] LABS: ALBUMIN 2.8 G/DL (3.2-4.8); ALKALINE PHOSPHATASE 51 IU/L (3-129); ALT (GPT) 27 IU/L (3-49); CHLORIDE 113 MEQ/L (99-109); CREATININE 0.7 MG/DL (0.6-1.3); GFR ESTIMATE (CALCULATED) > 59 mL/min/ (58.99-99999); MAGNESIUM 1.8 mg/dl (1.3-2.7); PHOSPHORUS 3.2 mg/dL (2.5-4.9); POTASSIUM 4.3 MEQ/L (3.7-5.4); SODIUM 150 MEQ/L (136-147); TOTAL PROTEIN 4.8 G/DL (6.4-8.3); UREA NITROGEN (BUN) 23 mg/dL (9-23)
[2018-01-17 06:07] LABS: AST (GOT) 16 IU/L (2-34); GLUCOSE 260 mg/dL (70-99); TOTAL BILIRUBIN 0.3 MG/DL (0.0-1.0)
[2018-01-17 06:25] LABS: BASE EXCESS 5.4 mEq/L (-3 to +3); BICARBONATE 32.7 mEq/L (22-26); CARBOXY HGB 1.8 % (0-5); DEVICE VENT; FI02 50 %; MECHANICAL RATE 23 resp/min; METHEMOGLOBIN 1.6 % (0-1.5); MODE ACVC; PCO2 65 mm Hg (35-45); PEEP 3 CM/H20; PO2 99 mm Hg (80-100); SITE ALINE; TIDAL VOLUME 300 ML; TOTAL RESP RATE 23 resp/min; pH 7.31 (7.35-7.45)
[2018-01-18] VITALS (7 sets, daily range): BP systolic 111–146; BP diastolic 57–81
[2018-01-18 04:51] LABS: HEMATOCRIT 24.7 % (38.0-50.0); HEMOGLOBIN 7.7 G/DL (12.5-16.6); MCH 30.7 PG (29.0-34.0); MCHC 31.2 G/DL (30.0-36.0); MCV 98.4 FL (86-99); NRBC (%) 0.4 /100 WBC (0-0); PLATELET COUNT 333 K/uL (156-360); RBC DIS.WIDTH-CV 19.1 % (11.8-14.6); RBC DIS.WIDTH-SD 63.9 % (39-53); RED BLOOD COUNT 2.51 M/uL (4.00-5.50); WHITE BLOOD COUNT 13.7 K/uL (4.1-10.2)
[2018-01-18 05:04] LABS: ALBUMIN 2.6 g/dL (3.2-4.8)
[2018-01-18 05:05] LABS: CHLORIDE 112 mEq/L (99-109); POTASSIUM 4.1 mEq/L (3.7-5.4); SODIUM 149 mEq/L (136-147)
[2018-01-18 05:07] LABS: GLUCOSE 182 mg/dL (70-99); TOTAL PROTEIN 4.7 g/dL (6.4-8.3)
[2018-01-18 05:10] LABS: ALKALINE PHOSPHATASE 50 IU/L (3-129)
[2018-01-18 05:11] LABS: CREATININE 0.6 mg/dL (0.6-1.3); GFR ESTIMATE (CALCULATED) > 59 mL/min/ (58.99-99999)
[2018-01-18 05:12] LABS: UREA NITROGEN (BUN) 24 mg/dL (9-23)
[2018-01-18 05:13] LABS: ALT (GPT) 25 IU/L (3-49)
[2018-01-18 05:21] LABS: AST (GOT) 9 IU/L (2-34); TOTAL BILIRUBIN 0.4 mg/dL (0.0-1.0)
[2018-01-19 02:00] VITALS: BP 110/60
[2018-01-19 04:01] VITALS: BP 143/83
[2018-01-19 05:14] LABS: HEMATOCRIT 27.2 % (38.0-50.0); HEMOGLOBIN 8.3 G/DL (12.5-16.6); MCHC 30.5 G/DL (30.0-36.0); MCV 98.2 FL (86-99); NRBC (%) 0.6 /100 WBC (0-0); PLATELET COUNT 341 K/uL (156-360); RBC DIS.WIDTH-CV 19.3 % (11.8-14.6); RBC DIS.WIDTH-SD 63.9 % (39-53); RED BLOOD COUNT 2.77 M/uL (4.00-5.50); WHITE BLOOD COUNT 12.5 K/uL (4.1-10.2)
[2018-01-19 05:19] LABS: BASE EXCESS 8.7 mEq/L (-3 to +3); BICARBONATE 34.7 mEq/L (22-26); COMMENTS - BLOOD GASES ALINE; DEVICE VENT; FI02 40 %; METHEMOGLOBIN 1.4 % (0-1.5); PCO2 56 mm Hg (35-45); PO2 113 mm Hg (80-100); SITE RR
[2018-01-19 05:20] LABS: MECHANICAL RATE 23 resp/min; MODE ACVC+; PEEP 5 CM/H20; TIDAL VOLUME 300 ML; TOTAL RESP RATE 23 resp/min
[2018-01-19 05:25] LABS: ALBUMIN 2.8 g/dL (3.2-4.8)
[2018-01-19 05:26] LABS: CHLORIDE 110 mEq/L (99-109); POTASSIUM 4.5 mEq/L (3.7-5.4); SODIUM 150 mEq/L (136-147)
[2018-01-19 05:28] LABS: GLUCOSE 229 mg/dL (70-99); TOTAL PROTEIN 5.1 g/dL (6.4-8.3)
[2018-01-19 05:30] LABS: TOTAL BILIRUBIN 0.4 mg/dL (0.0-1.0)
[2018-01-19 05:31] LABS: ALKALINE PHOSPHATASE 55 IU/L (3-129)
[2018-01-19 05:32] LABS: CREATININE 0.6 mg/dL (0.6-1.3); GFR ESTIMATE (CALCULATED) > 59 mL/min/ (58.99-99999)
[2018-01-19 05:33] LABS: AST (GOT) 13 IU/L (2-34); UREA NITROGEN (BUN) 34 mg/dL (9-23)
[2018-01-19 05:34] LABS: ALT (GPT) 27 IU/L (3-49)
[2018-01-19 20:00] VITALS: BP 109/54
[2018-01-19 21:00] VITALS: BP 151/73
[2018-01-19 22:00] VITALS: BP 105/50
[2018-01-19 23:00] VITALS: BP 144/869
[2018-01-20] VITALS: BP 108/57
[2018-01-20 01:00] VITALS: BP 108/57
[2018-01-20 02:00] VITALS: BP 111/58
[2018-01-20 03:00] VITALS: BP 110/57
[2018-01-20 08:00] VITALS: BP 104/60
[2018-01-20 10:33] LABS: BASE EXCESS 9.9 mEq/L (-3 to +3); BICARBONATE 35.7 mEq/L (22-26); CARBOXY HGB 2.3 % (0-5); METHEMOGLOBIN 1.3 % (0-1.5); PCO2 55 mm Hg (35-45); pH 7.42 (7.35-7.45)
[2018-01-20 10:34] LABS: PO2 66 mm Hg (80-100)
[2018-01-20 10:35] LABS: COMMENTS - BLOOD GASES ART LINE; DEVICE VENT; FI02 30 %; MECHANICAL RATE 23 resp/min; MODE ACVC+; PEEP 5 CM/H20; SITE RR; TIDAL VOLUME 300 ML; TOTAL RESP RATE 23 resp/min
[2018-01-20 13:56] LABS: HEMATOCRIT 31.8 % (38.0-50.0); HEMOGLOBIN 9.5 G/DL (12.5-16.6); MCH 29.4 PG (29.0-34.0); MCHC 29.9 G/DL (30.0-36.0); MCV 98.5 FL (86-99); NRBC (%) 0.3 /100 WBC (0-0); PLATELET COUNT 373 K/uL (156-360); RBC DIS.WIDTH-CV 19.4 % (11.8-14.6); RBC DIS.WIDTH-SD 64.3 % (39-53); RED BLOOD COUNT 3.23 M/uL (4.00-5.50)
[2018-01-20 14:49] LABS: CHLORIDE 102 MEQ/L (99-109); CREATININE 0.4 MG/DL (0.6-1.3); GFR ESTIMATE (CALCULATED) > 59 mL/min/ (58.99-99999); GLUCOSE 171 mg/dL (70-99); POTASSIUM 4.8 MEQ/L (3.7-5.4); SODIUM 144 MEQ/L (136-147); TRIGLYCERIDES 179 MG/DL (Normal: <150); UREA NITROGEN (BUN) 31 mg/dL (9-23)
[2018-01-20 19:00] VITALS: BP 97/54
[2018-01-21 09:07] LABS: HEMATOCRIT 27.6 % (38.0-50.0); HEMOGLOBIN 8.6 G/DL (12.5-16.6); MCH 29.8 PG (29.0-34.0); MCHC 31.2 G/DL (30.0-36.0); MCV 95.5 FL (86-99); NRBC (%) 0.5 /100 WBC (0-0); PLATELET COUNT 325 K/uL (156-360); RBC DIS.WIDTH-CV 18.8 % (11.8-14.6); RBC DIS.WIDTH-SD 60.9 % (39-53); RED BLOOD COUNT 2.89 M/uL (4.00-5.50); WHITE BLOOD COUNT 12.6 K/uL (4.1-10.2)
[2018-01-21 09:29] LABS: CHLORIDE 101 MEQ/L (99-109); CREATININE 0.3 MG/DL (0.6-1.3); GFR ESTIMATE (CALCULATED) > 59 mL/min/ (58.99-99999); GLUCOSE 168 mg/dL (70-99); POTASSIUM 4.6 MEQ/L (3.7-5.4); SODIUM 142 MEQ/L (136-147); UREA NITROGEN (BUN) 27 mg/dL (9-23)
[2018-01-22 06:00] VITALS: BP 100/69
[2018-01-22 07:01] VITALS: BP 88/63
[2018-01-22 08:01] VITALS: BP 95/64
[2018-01-22 09:01] VITALS: BP 93/61
[2018-01-22 10:01] VITALS: BP 81/56
[2018-01-24 07:37] VITALS: BP 115/59
[2018-01-24 09:16] VITALS: BP 00/00
== END 2018-01-25 21:12 | disposition hospice, home (50) | DRG 853 ==
LOC: EME 16:00 → 4WEST 22:02 → ENRESERV 22:02 → EDOF 22:02 → ENRESERV 22:39 → 4WEST 23:31 → ENRESERV 01-22 → 4WEST 01-22 18:55 → ENRESERV 01-22 19:04 → 5EAST 01-22 21:39
PROVIDERS: Emergency Medicine; Internal Medicine Critical Care Medicine; Obstetrics & Gynecology; Surgery
PROC: 02HV33Z Insertion of Infusion Device into Superior Vena Cava, Percutaneous Approach (ICD-10-PCS; 2018-01-11)
PROC: 0BH18EZ Insertion of Endotracheal Airway into Trachea, Via Natural or Artificial Opening Endoscopic (ICD-10-PCS; principal; 2018-01-14)
PROC: 5A1955Z Respiratory Ventilation, Greater than 96 Consecutive Hours (ICD-10-PCS; principal; 2018-01-14)
PROC: 0B9G8ZX Drainage of Left Upper Lung Lobe, Via Natural or Artificial Opening Endoscopic, Diagnostic (ICD-10-PCS; principal; 2018-01-14)
PROC: 0B9J8ZX Drainage of Left Lower Lung Lobe, Via Natural or Artificial Opening Endoscopic, Diagnostic (ICD-10-PCS; principal; 2018-01-14)
PROC: 0B21XEZ Change Endotracheal Airway in Trachea, External Approach (ICD-10-PCS; 2018-01-16)
PROC: 4A133R1 Monitoring of Arterial Saturation, Peripheral, Percutaneous Approach (ICD-10-PCS; 2018-01-16)
PROC: 03HY32Z Insertion of Monitoring Device into Upper Artery, Percutaneous Approach (ICD-10-PCS; 2018-01-16)
DX: A41.9 Sepsis, unspecified organism (principal); R65.21 Severe sepsis with septic shock; J96.21 Acute and chronic respiratory failure with hypoxia; J44.0 Chronic obstructive pulmonary disease with (acute) lower respiratory infection; J15.9 Unspecified bacterial pneumonia; J96.22 Acute and chronic respiratory failure with hypercapnia; J86.0 Pyothorax with fistula; I48.0 Paroxysmal atrial fibrillation; E87.1 Hypo-osmolality and hyponatremia; E87.5 Hyperkalemia; E87.2 Acidosis; I27.20 Pulmonary hypertension, unspecified; I08.1 Rheumatic disorders of both mitral and tricuspid valves; D63.8 Anemia in other chronic diseases classified elsewhere; E11.9 Type 2 diabetes mellitus without complications; R10.9 Unspecified abdominal pain; I10 Essential (primary) hypertension; E78.5 Hyperlipidemia, unspecified; K21.9 Gastro-esophageal reflux disease without esophagitis; F41.9 Anxiety disorder, unspecified; F32.9 Major depressive disorder, single episode, unspecified; Z51.5 Encounter for palliative care; Z66 Do not resuscitate; Z85.118 Personal history of other malignant neoplasm of bronchus and lung; Z90.2 Acquired absence of lung [part of]; Z99.81 Dependence on supplemental oxygen; Z91.19 Patient's noncompliance with other medical treatment and regimen; Z87.891 Personal history of nicotine dependence; Z80.1 Family history of malignant neoplasm of trachea, bronchus and lung; Z82.49 Family history of ischemic heart disease and other diseases of the circulatory system; Z80.0 Family history of malignant neoplasm of digestive organs; Z79.84 Long term (current) use of oral hypoglycemic drugs
CPT/HCPCS: 36600; 70450; 71045; 71275; 74176; 80048; 80053; 80202; 81003; 82565; 82803; 82948; 83036; 83605; 83735; 83880; 84100; 84132 91; 84478; 84484; 84520; 85027; 87040; 87070; 87081; 87102; 87116; 87205; 87206; 87278; 87641; 93005; 93306; 94002; 94003; 94640; 94640 76; 94760; 94799; 99202; 99281; 99285; A6214; C1751; J0282; J0610; J1644; J1815; J1940; J1956; J2060; J2250; J2543; J2704; J2930; J3010; J3370; J3475; J7030; J7050; J7070; P9047; S0028